=== PATIENT | female | born 1970 | race Caucasian/White ===

== ENCOUNTER 2017-01-24 19:07 | Emergency (ER) | payer OTHER ==
[~2017-01-24 19:07] MED LIST: INCRUSE ELLI62.5 MCG INH; LEVAQUIN500 MG PO; LEVAQUIN750 MG PO; MEDROL4 M1 PO; PANTOPRAZOLE SO40 MG PO; PREDNISONE5 MG PO; PRILOSEC40 MG PO; SPIRIVA18 MCG INH; SYMBICORT 16060 PUFF INH; VENTOLIN HFA8 GM INH
== END 2017-01-24 22:34 | disposition left against medical advice (07) ==
LOC: ER 19:07
DX: Z53.21 Procedure and treatment not carried out due to patient leaving prior to being seen by health care provider (principal)
CPT/HCPCS: 99070; 99211